=== PATIENT | female | born 1995 | race Two or more races ===

== ENCOUNTER 2022-05-11 14:34 | Emergency (ER) | payer MEDICAID, OTHER ==
[~2022-05-11] VITALS: Ht 165.1 cm; Wt 63.5 kg
[2022-05-11] MEDS ORDERED: ONDANSETRON ODT 4 MG TAB PO ONE (15:00)
[2022-05-11] MEDS ORDERED: OXYCODONE W/ ACETAMINOPHEN 5/325MG TABLET PO ONE (15:00)
[2022-05-11] MEDS ORDERED: PERCOT PO (16:17)
[2022-05-11] MEDS ORDERED: ONDA-144 PO (16:17)
[2022-05-11 16:37] VITALS: BP 108/66
== END 2022-05-11 16:40 | disposition home or self-care (01) ==
LOC: EDBD 14:34 → ER 14:34
DX: S16.1XXA Strain of muscle, fascia and tendon at neck level, initial encounter (principal); V89.2XXA Person injured in unspecified motor-vehicle accident, traffic, initial encounter; Y93.89 Activity, other specified; Y92.410 Unspecified street and highway as the place of occurrence of the external cause; Y99.8 Other external cause status
CPT/HCPCS: 71045; 72125; 99284; Q0162